=== PATIENT | female | born 1960 | race Caucasian/White ===

== ENCOUNTER 2016-09-23 12:33 | Emergency (ER) | payer BC, MEDICAID ==
[~2016-09-23] VITALS: Ht 165.1 cm; Wt 68.9 kg
[2016-09-23 12:43] VITALS: BP 154/102; PULSE 80; RESP 18; TEMP 97.4
--- NOTE | 2016-09-23 14:06 | PD ---
HPI . Refill request Chief Complaint: Medication Refill Request Time Seen by Provider: 13:39 Travel History International Travel<30 days: No Contact w/Intl Traveler<30days: No Traveled to known affect area: No History of Present Illness HPI Patient presents requesting a refill of her benzodiazepine. She reports that she's been out for about 4 days. She states that she can't sleep and is very tremulous and nauseous. She has recently moved to the area. She does not have a physician here. PFSH Past Medical History ?: Not Social History Tobacco Use: Yes Allergies-Medications (Allergen,Severity, Reaction): Coded Allergies: No Known Allergies (Unverified , 09/23/16) Review of Systems Except as stated in HPI: all other systems reviewed are Neg General / Constitutional: No: Fever, Chills Gastrointestinal: Positive: Nausea Neurologic: Positive: Tremor Psychiatric: Positive: Anxiety, Other (insomnia) Physical Exam Narrative GENERAL: Awake and alert and in no acute distress. SKIN: Warm and dry. CARDIOVASCULAR: Regular rate and rhythm. RESPIRATORY: No accessory muscle use. MUSCULOSKELETAL: No obvious deformities. No edema. NEUROLOGICAL: Awake and alert. No obvious cranial nerve deficits. Motor grossly within normal limits. Normal speech. PSYCHIATRIC: Anxious, tremulous, angry after I told her that I would not be refilling her medication. Data Data Last Documented VS Vital Signs Date Time Temp Pulse Resp B/P Pulse Ox O2 Delivery O2 Flow Rate FiO2 09/23/16 12:43 97.4 80 18 154/102 [facility] Medical Decision Making Medical Screen Exam Complete: Yes Emergency Medical Condition: Yes Differential Diagnosis Differential diagnosis includes anxiety, withdrawal, drug-seeking behavior Narrative Course Patient presents requesting a refill of a benzodiazepine. I have explained to the patient that we cannot do that through the emergency department. She does not have an ID. Diagnosis Primary Impression: Difficulty refilling prescriptions Disposition: 01 DISCHARGE HOME Condition: Stable Ariane Hillman MD Sep 23, 2016 14:06
[2016-09-23] MEDS ORDERED: LORazepam 1 MG TAB PO ONE (14:15)
== END 2016-09-23 14:53 | disposition home or self-care (01) ==
LOC: PHED 12:33 → PHEFT 14:53
DX: R11.0 Nausea (principal); Z76.0 Encounter for issue of repeat prescription
CPT/HCPCS: 99281

== ENCOUNTER 2017-02-04 03:15 | Emergency (ER) | payer MEDICAID, OTHER ==
[~2017-02-04] VITALS: Ht 165.1 cm; Wt 65.0 kg
[2017-02-04 03:23] VITALS: BP 144/95; PULSE 77; RESP 18; TEMP 97.6; O2SAT 96
[2017-02-04] MEDS ORDERED: SUBO8MIS SL (03:32)
[2017-02-04] MEDS ORDERED: KLON2TAB PO (03:33)
[2017-02-04 03:55] LABS: AUTOMATED NEUTROPHIL # 1.9 TH/MM3 (1.8-7.7); BASOPHIL % 0.6 % (0.0-2.0); EOSINOPHIL % 1.3 % (0.0-4.0); HEMATOCRIT 36.1 % (35.0-46.0); LYMPH % 31.3 % (9.0-44.0); LYMPHOCYTE # 1.1 TH/MM3 (1.0-4.8); MEAN CELL VOLUME 84.9 FL (80.0-100.0); MEAN CORPUSCULAR HEMOGLOBIN 29.8 PG (27.0-34.0); MEAN CORPUSCULAR HGB CONC 35.1 % (32.0-36.0); MONO % 13.5 % (0.0-8.0); NEUT % 53.3 % (16.0-70.0); PLATELET COUNT 150 TH/MM3 (150-450); RED BLOOD COUNT 4.26 MIL/MM3 (4.00-5.30); RED CELL DISTRIBUTION WIDTH 13.6 % (11.6-17.2); WHITE BLOOD COUNT 3.6 TH/MM3 (4.0-11.0)
[2017-02-04 03:58] LABS: HEMO FLAGS AUTO DIFF
[2017-02-04] MEDS ORDERED: LORazepam 1 MG TAB PO ONE (04:15)
[2017-02-04 04:28] LABS: ANION GAP 4 MEQ/L (5-15); AST (GOT) 32 U/L (15-37); BICARBONATE 28.9 MEQ/L (21.0-32.0); BLOOD UREA NITROGEN 15 MG/DL (7-18); CHLORIDE 106 MEQ/L (98-107); GLOMERULAR FILTRATION RATE 88 ML/MIN (>89); POTASSIUM 3.5 MEQ/L (3.5-5.1); SODIUM (NA) 139 MEQ/L (136-145)
[2017-02-04 04:29] LABS: ALT (GPT) 24 U/L (10-53)
[2017-02-04 04:32] LABS: ALKALINE PHOSPHATASE 73 U/L (45-117); TOTAL BILIRUBIN ADULT 0.5 MG/DL (0.2-1.0)
[2017-02-04 04:53] LABS: SCAN/DIFF AUTO DIFF CONFIRMED
[2017-02-04 04:54] LABS: PLATELET ESTIMATE SMEAR NORMAL (NORMAL); PLATELET MORPHOLOGY NORMAL (NORMAL)
--- NOTE | 2017-02-04 05:23 | PD ---
HPI Chief Complaint: Chest Pain Time Seen by Provider: 03:51 Travel History International Travel<30 days: No Contact w/Intl Traveler<30days: No Traveled to known affect area: No History of Present Illness HPI This Is a 57-year-old female who presents to the emergency department for multiple reasons including depression, poorly controlled anxiety and palpitations. She says she feels like she can't control her life anymore. Her boyfriend threw away all of her Klonopin. She's been in constant conflict with her significant other. She's not able to control her anxiety and that's why she is here. PFSH Past Medical History Anxiety: Yes Cardiovascular Problems: Yes (LEAKY VALVE, HTN) Hepatitis: Yes (C) Hypertension: Yes Medical other: Yes ?: Not Past Surgical History Other Surgery: Yes (CERVICAL SX) Social History Alcohol Use: No Tobacco Use: Yes (1ppd) Substance Use: Yes (HX OF HEROINE) Allergies-Medications (Allergen,Severity, Reaction): Coded Allergies: No Known Allergies (Unverified , 02/04/17) Reported Meds & Prescriptions Reported Meds & Active Scripts Active Reported Klonopin (Clonazepam) 2 Mg Tab 2 Mg PO TID Suboxone Sublingual Film (Buprenorphine-Naloxone Sublingual Film) 8-2 Mg Film 1 Film SL BID Unique ID number required: Review of Systems Except as stated in HPI: all other systems reviewed are Neg Physical Exam Narrative GENERAL: Disheveled SKIN: Focused skin assessment warm and dry. HEAD: Atraumatic. Normocephalic. EYES: Pupils equal and round. No injection or drainage. ENT: Moist mucous membranes NECK: Trachea midline. CARDIOVASCULAR: Regular rate and rhythm. No murmur appreciated. RESPIRATORY: Clear to auscultation. Breath sounds equal bilaterally. GASTROINTESTINAL: Abdomen soft, non-tender, nondistended. MUSCULOSKELETAL: No obvious deformities. NEUROLOGICAL: Awake and alert. No obvious cranial nerve deficits. Moving all extremities. PSYCHIATRIC: Anxious, intermittently tearful Data Data Last Documented VS Vital Signs Date Time Temp Pulse Resp B/P Pulse Ox O2 Delivery O2 Flow Rate FiO2 02/04/17 03:28 74 18 95 Room Air 02/04/17 03:23 97.6 144/95 Orders Complete Blood Count With Diff (02/04/17 03:37) Comprehensive Metabolic Panel (02/04/17 03:37) Troponin I (02/04/17 03:37) ^ Insert Iv (02/04/17 03:37) Electrocardiogram (02/04/17 ) Alcohol (Ethanol) (02/04/17 04:12) Drug Screen, Random Urine (02/04/17 04:12) Lorazepam (Ativan) (02/04/17 04:15) Psych Screen (02/04/17 04:14) Labs Laboratory Tests Test 02/04/17 03:45 White Blood Count 3.6 TH/MM3 Red Blood Count 4.26 MIL/MM3 Hemoglobin 12.7 GM/DL Hematocrit 36.1 % Mean Corpuscular Volume 84.9 FL Mean Corpuscular Hemoglobin 29.8 PG Mean Corpuscular Hemoglobin 35.1 % Concent Red Cell Distribution Width 13.6 % Platelet Count 150 TH/MM3 Mean Platelet Volume 7.4 FL Neutrophils (%) (Auto) 53.3 % Lymphocytes (%) (Auto) 31.3 % Monocytes (%) (Auto) 13.5 % Eosinophils (%) (Auto) 1.3 % Basophils (%) (Auto) 0.6 % Neutrophils # (Auto) 1.9 TH/MM3 Lymphocytes # (Auto) 1.1 TH/MM3 Monocytes # (Auto) 0.5 TH/MM3 Eosinophils # (Auto) 0.0 TH/MM3 Basophils # (Auto) 0.0 TH/MM3 CBC Comment AUTO DIFF Differential Comment AUTO DIFF CONFIRMED Platelet Estimate NORMAL Platelet Morphology Comment NORMAL Sodium Level 139 MEQ/L Potassium Level 3.5 MEQ/L Chloride Level 106 MEQ/L Carbon Dioxide Level 28.9 MEQ/L Anion Gap 4 MEQ/L Blood Urea Nitrogen 15 MG/DL Creatinine 0.69 MG/DL Estimat Glomerular Filtration 88 ML/MIN Rate Random Glucose 79 MG/DL Calcium Level 8.3 MG/DL Total Bilirubin 0.5 MG/DL Aspartate Amino Transf 32 U/L (AST/SGOT) Alanine Aminotransferase 24 U/L (ALT/SGPT) Alkaline Phosphatase 73 U/L Troponin I LESS THAN 0.02 NG/ML Total Protein 8.0 GM/DL Albumin 3.1 GM/DL Ethyl Alcohol Level LESS THAN 3 MG/DL MDM Medical Decision Making Medical Screen Exam Complete: Yes Emergency Medical Condition: Yes Interpretation(s) Afebrile, no tachycardia, hypertensive Mild leukopenia Electrolytes are reassuring Troponin is normal Alcohol negative Differential Diagnosis Acute coronary syndrome, anxiety, panic attack, depression, bipolar disorder Narrative Course This is a 57-year-old female who presents to the emergency department reporting poorly controlled anxiety. She is very tearful and difficult to direct on exam. Labs are obtained which were all reassuring. I think she is appropriate for voluntary psychiatric evaluation. Tasia Marques MD Feb 04, 2017 05:23
--- NOTE | 2017-02-04 08:43 | EKG ---
Date Performed: 02/04/2017 Time Performed: 03:51:11 PTAGE: 57 years EKG: Sinus rhythm POSSIBLE LEFT ATRIAL ENLARGEMENT POSSIBLE LEFT VENTRICULAR HYPERTROPHY NONSPECIFIC T-WAVE ABNORMALIT Y ABNORMAL ECG NO PREVIOUS TRACING DOCTOR: Eliot Sánchez Interpretating Date/Time 02/04/2017 08:41:13
[2017-02-04 08:50] VITALS: BP 121/91; PULSE 88; RESP 17; O2SAT 98
== END 2017-02-04 09:56 | disposition left against medical advice (07) ==
LOC: NEPE 03:15
DX: R07.9 Chest pain, unspecified (principal); I10 Essential (primary) hypertension; D72.819 Decreased white blood cell count, unspecified; R94.31 Abnormal electrocardiogram [ECG] [EKG]; F41.9 Anxiety disorder, unspecified; B19.20 Unspecified viral hepatitis C without hepatic coma; F17.200 Nicotine dependence, unspecified, uncomplicated; Z79.899 Other long term (current) drug therapy
CPT/HCPCS: 80053; 80307; 84484; 85025; 93005; 99284

== ENCOUNTER 2017-03-24 17:04 | Emergency (ER) | payer OTHER ==
[~2017-03-24] VITALS: Ht 165.1 cm; Wt 65.0 kg
[~2017-03-24 17:04] MED LIST: KLON2TAB PO; SUBO8MIS SL
[2017-03-24 17:23] VITALS: BP 115/60; PULSE 68; RESP 18; TEMP 98.3; O2SAT 96
[2017-03-24] MEDS ORDERED: diphenhydrAMINE HCL 50 MG/ML VIAL IV PUSH ONE (17:45)
[2017-03-24] MEDS ORDERED: LORazepam 2 MG/ML VIAL IV PUSH ONE (17:45)
[2017-03-24] MEDS ORDERED: SODIUM CHLORIDE 0.9% FLUSH 10 ML FLUSH IVF PRN (17:45)
[2017-03-24] MEDS ORDERED: TETANUS/DIPHTHERIA TOXOID ADULT 0.5 ML VIAL IM ONE (17:45)
[2017-03-24 17:58] VITALS: O2SAT 98
[2017-03-24 18:03] LABS: AUTOMATED NEUTROPHIL # 1.3 TH/MM3 (1.8-7.7); BASOPHIL % 0.9 % (0.0-2.0); EOSINOPHIL % 1.5 % (0.0-4.0); HEMATOCRIT 35.9 % (35.0-46.0); LYMPH % 35.5 % (9.0-44.0); LYMPHOCYTE # 0.9 TH/MM3 (1.0-4.8); MEAN CELL VOLUME 85.6 FL (80.0-100.0); MEAN CORPUSCULAR HGB CONC 33.8 % (32.0-36.0); MONO % 11.8 % (0.0-8.0); NEUT % 50.3 % (16.0-70.0); PLATELET COUNT 139 TH/MM3 (150-450); RED CELL DISTRIBUTION WIDTH 13.1 % (11.6-17.2); WHITE BLOOD COUNT 2.5 TH/MM3 (4.0-11.0)
[2017-03-24 18:06] LABS: HEMO FLAGS DIFF FINAL
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
[2017-03-24 18:20] LABS: APTT (PATIENT) 30.2 SEC (24.3-30.1); PROTHROMBIN TIME - PATIENT 11.4 SEC (9.8-11.6)
[2017-03-24 18:33] LABS: ANION GAP 4 MEQ/L (5-15); BICARBONATE 29.4 MEQ/L (21.0-32.0); BLOOD UREA NITROGEN 14 MG/DL (7-18); CHLORIDE 107 MEQ/L (98-107); GLOMERULAR FILTRATION RATE 68 ML/MIN (>89); MAGNESIUM 1.8 MG/DL (1.5-2.5); POTASSIUM 3.3 MEQ/L (3.5-5.1); SODIUM (NA) 140 MEQ/L (136-145)
[2017-03-24 18:42] LABS: CREATINE KINASE 77 U/L (26-192)
[2017-03-24 18:49] VITALS: BP_SYST 119; BP_SYST 120; BP_DIAS 67; BP_DIAS 73; PULSE 59; RESP 14; O2SAT 98
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
[2017-03-24] MEDS ORDERED: MOBI15TA PO (19:40)
[2017-03-24] MEDS ORDERED: CYCL1TAB29 PO (19:40)
[2017-03-24] MEDS ORDERED: CLON1 PO (19:40)
--- NOTE | 2017-03-25 14:40 | EKG ---
Date Performed: 03/24/2017 Time Performed: 17:20:38 PTAGE: 57 years EKG: Sinus rhythm POSSIBLE LEFT ATRIAL ENLARGEMENT POSSIBLE LEFT VENTRICULAR HYPERTROPHY NONSPECIFIC T-WAVE ABNORMALIT Y ABNORMAL ECG Compared to prior tracing no significant change PREVIOUS TRACING : 03/13/2017 06.45 DOCTOR: Sage Jones Interpretating Date/Time 03/25/2017 14:34:50
== END 2017-03-24 20:18 | disposition home or self-care (01) ==
LOC: NEPC 17:04
DX: R07.9 Chest pain, unspecified (principal); M53.3 Sacrococcygeal disorders, not elsewhere classified; R51 Headache; M25.552 Pain in left hip; M25.572 Pain in left ankle and joints of left foot; M79.652 Pain in left thigh; M50.322 Other cervical disc degeneration at C5-C6 level; E87.6 Hypokalemia; Z23 Encounter for immunization
CPT/HCPCS: 70450; 71010; 72100; 72125; 72170; 73552; 73560; 73590; 80048; 82550; 83735; 84484; 85025; 85610; 85730; 90471; 90714; 93005; 96374; 96375; 99285; J1200; J2060

== ENCOUNTER 2017-03-30 16:08 | Emergency (ER) | payer OTHER ==
[~2017-03-30] VITALS: Ht 165.1 cm; Wt 66.5 kg
[~2017-03-30 16:08] MED LIST changes: +CLON1 PO; +CYCL1TAB29 PO; +MOBI15TA PO
[2017-03-30 17:34] VITALS: BP 121/63; PULSE 80; RESP 16; TEMP 97.9; O2SAT 96
[2017-03-30] MEDS ORDERED: SULFAMETHOXAZOLE-TRIMETHOPRIM DS 800-160 MG TAB PO ONE (20:45)
[2017-03-30] MEDS ORDERED: KETOROLAC TROMETHAMINE 60 MG/2 ML (IM) VIAL IM ONE (20:45)
[2017-03-30] MEDS ORDERED: clonazePAM 1 MG TAB PO ONE (20:45)
[2017-03-30] MEDS ORDERED: ACETAMINOPHEN/HYDROcodone 325 MG/5 MG TAB PO ONE (20:45)
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
[2017-03-30] MEDS ORDERED: DICL75TA PO (21:37)
[2017-03-30] MEDS ORDERED: BACT800T5 PO (21:37)
[2017-03-30] MEDS ORDERED: CLON1 PO ×2 (21:37→21:38)
[2017-03-30] MEDS ORDERED: CEPH-460 PO (21:37)
== END 2017-03-30 21:56 | disposition home or self-care (01) ==
LOC: PHEFT 16:08
DX: L03.012 Cellulitis of left finger (principal); F41.9 Anxiety disorder, unspecified; M79.89 Other specified soft tissue disorders; I10 Essential (primary) hypertension
CPT/HCPCS: 73590; 73630; 96372; 99284; E0113; J1885

== ENCOUNTER 2017-04-16 18:25 | Emergency (ER) | payer OTHER ==
[~2017-04-16] VITALS: Ht 165.1 cm; Wt 58.0 kg
[~2017-04-16 18:25] MED LIST changes: +BACT800T5 PO; +CEPH-460 PO; +DICL75TA PO
[2017-04-16 18:35] VITALS: BP 135/88; PULSE 105; RESP 24; TEMP 97.5; O2SAT 98
[2017-04-16 18:42] VITALS: BP 135/88; PULSE 105; RESP 24; TEMP 97.5; O2SAT 98
[2017-04-16] MEDS ORDERED: HYDR-3133 PO (19:13)
--- NOTE | 2017-04-16 19:13 | PD ---
HPI Chief Complaint: Anxiety Time Seen by Provider: 18:54 Travel History International Travel<30 days: No Contact w/Intl Traveler<30days: No Traveled to known affect area: No History of Present Illness HPI This is a 57 year old female who has a history of opiate and benzodiazepine withdrawl who presents to the emergency department requesting a refill on her Klonopin. She says she just moved from [place] earlier this spring and when she came down to [place] as she was able to find a doctor who would write for her Suboxone but not her Klonopin. She says ever since then she's been going through benzodiazepine withdrawal, sweating, and not feeling herself. She says no doctor once to help her. She says she usually comes to the emergency department and gets a dose of Ativan and then she feels better for a little bit of time but ultimately she goes home and feels badly again. She says she just wants to feel normal. PFSH Past Medical History Anxiety: Yes Cardiovascular Problems: Yes (LEAKY VALVE, HTN) Diminished Hearing: No Hepatitis: Yes (C) Hypertension: Yes Tetanus Vaccination: < 5 Years Influenza Vaccination: No ?: Not Menopausal: Yes Past Surgical History Other Surgery: Yes (CERVICAL SX) Social History Alcohol Use: No Tobacco Use: Yes (1ppd) Substance Use: Yes (HX OF HEROINE) Allergies-Medications (Allergen,Severity, Reaction): Coded Allergies: No Known Allergies (Unverified , 04/16/17) Reported Meds & Prescriptions Reported Meds & Active Scripts Active Reported Klonopin (Clonazepam) 2 Mg Tab 2 Mg PO TID Suboxone Sublingual Film (Buprenorphine-Naloxone Sublingual Film) 8-2 Mg Film 1 Film SL BID Unique ID number required: Review of Systems Except as stated in HPI: all other systems reviewed are Neg Physical Exam Narrative GENERAL: Tearful, disheveled SKIN: Focused skin assessment warm and dry. HEAD: Atraumatic. Normocephalic. EYES: Pupils equal and round. No injection or drainage. ENT: Moist mucous membranes NECK: Trachea midline. CARDIOVASCULAR: Regular rate and rhythm. No murmur appreciated. RESPIRATORY: Clear to auscultation. Breath sounds equal bilaterally. GASTROINTESTINAL: Abdomen soft, non-tender, nondistended. MUSCULOSKELETAL: No obvious deformities. NEUROLOGICAL: Awake and alert. No obvious cranial nerve deficits. PSYCHIATRIC: Appropriate mood and affect; insight and judgment normal. Data Data Last Documented VS Vital Signs Date Time Temp Pulse Resp B/P (MAP) Pulse Ox O2 Delivery O2 Flow Rate FiO2 04/16/17 18:42 97.5 105 24 135/88 (104) 98 Room Air MDM Medical Decision Making Medical Screen Exam Complete: Yes Emergency Medical Condition: Yes Medical Record Reviewed: Yes (I saw this patient on February 04, 2017. At that time she came in because she wanted a refill on her Klonopin. She ultimately left AGAINST MEDICAL ADVICE prior to seeing a psychiatrist) Differential Diagnosis Anxiety, benzodiazepine dependence, panic disorder, adjustment reaction Narrative Course This is a 57-year-old female who presents to the emergency department requesting refills on her Klonopin. I explained to her that we can't refill controlled substances in the emergency department. The patient is very tearful , argumentative and somewhat hyperverbal. The patient has filled 17 controlled substance prescriptions in the past 3 months from 7 different providers. I suspect she is drug seeking. I don't think it is in her best interest to prescribe her any controlled substances at this time. I don't think she has an underlying emergent etiology of her symptoms. I don't think she is in acute benzodiazepine withdrawal as her vital signs are normal. She was offered hydroxyzine and she was given a referral to [facility]. Diagnosis Primary Impression: Benzodiazepine dependence Patient Instructions: General Instructions Additional Instructions: Follow up with Joseph Bourgeois in regards to psychiatric or substance related issues at: [address] [place], [place] [id number] Med/Other Pt SpecificInfo: Prescription(s) given Scripts Hydroxyzine HCl (Hydroxyzine HCl) 25 Mg Tab 25 MG PO QID Y for ANXIETY, #15 TAB 0 Refills Prov: Tasia Marques MD 04/16/17 Disposition: 01 DISCHARGE HOME Condition: Stable Tasia Marques MD Apr 16, 2017 19:13
--- NOTE | 2017-04-17 10:27 | EKG ---
Date Performed: 04/16/2017 Time Performed: 18:39:13 PTAGE: 57 years EKG: SINUS TACHYCARDIA POSSIBLE LEFT ATRIAL ENLARGEMENT LEFT VENTRICULAR HYPERTROPHY AND ST-T CH ANAI ABNORMAL ECG PREVIOUS TRACING : 03/24/2017 17.20 Compared to prior tracing no significant change DOCTOR: Abdulaziz Hernadez Interpretating Date/Time 04/17/2017 10:20:56
== END 2017-04-16 19:29 | disposition home or self-care (01) ==
LOC: PHED 18:25
DX: F13.20 Sedative, hypnotic or anxiolytic dependence, uncomplicated (principal); F17.200 Nicotine dependence, unspecified, uncomplicated; I10 Essential (primary) hypertension; F41.9 Anxiety disorder, unspecified
CPT/HCPCS: 93005; 99283

== ENCOUNTER 2017-06-27 20:25 | Emergency (ER) | payer OTHER ==
[~2017-06-27] VITALS: Ht 165.1 cm; Wt 63.0 kg
[~2017-06-27 20:25] MED LIST changes: -BACT800T5 PO; -CEPH-460 PO; -CLON1 PO; -CYCL1TAB29 PO; -DICL75TA PO; +HYDR-3133 PO; -MOBI15TA PO
[2017-06-27 20:31] VITALS: BP 109/69; PULSE 74; RESP 16; TEMP 99.3; O2SAT 88
[2017-06-27 21:02] VITALS: BP 110/71; PULSE 76; RESP 16; O2SAT 96
[2017-06-27] MEDS ORDERED: CLON0.1T PO (21:13)
[2017-06-27] MEDS ORDERED: GABA100C4 PO (21:13)
[2017-06-27] MEDS ORDERED: CLON1TAB PO (21:13)
--- NOTE | 2017-06-27 21:23 | PD ---
HPI Chief Complaint: Cold / Flu Symptoms Time Seen by Provider: 21:10 Travel History International Travel<30 days: No Contact w/Intl Traveler<30days: No Traveled to known affect area: No History of Present Illness HPI The patient is a 57-year-old female that has had a cough and myalgias for 3-4 weeks. She smokes at least a pack a day. She may have had a fever, she never took her temperature at home. She does have a slight sore throat. She states she has been diagnosed as being HIV positive but does not believe it and never followed up with her doctors. She has not seen any physician for HIV and over 7 years. She is on Suboxone, hydroxyzine and Klonopin. She has a history of IV drug abuse [facility] Past Medical History Anxiety: Yes Cardiovascular Problems: Yes (LEAKING VALVE) Diminished Hearing: No Hepatitis: Yes (C) Hypertension: Yes Immune Disorder: Yes (HIV) Influenza Vaccination: No ?: Not Menopausal: Yes Past Surgical History Other Surgery: Yes (CERVICAL SX) Social History Alcohol Use: No Tobacco Use: Yes (1ppd) Substance Use: No (HX OF HEROINE) Allergies-Medications (Allergen,Severity, Reaction): Coded Allergies: No Known Allergies (Verified Adverse Reaction, Unknown, 06/27/17) Reported Meds & Prescriptions Reported Meds & Active Scripts Active Reported Gabapentin 100 Mg Cap 100 Mg PO TID Clonidine (Clonidine HCl) 0.1 Mg Tab 0.1 Mg PO BID Clonazepam 1 Mg Tab 1 Mg PO TID Suboxone Sublingual Film (Buprenorphine-Naloxone Sublingual Film) 8-2 Mg Film 1 Film SL BID Unique ID number required: Review of Systems Except as stated in HPI: all other systems reviewed are Neg Physical Exam Narrative GENERAL: The patient is alert, oriented 3 in no respiratory distress. Her vital signs show temperature 99.3 with oximetry 96% on room air. SKIN: Focused skin assessment warm/dry. No recent needle tracks are seen. HEAD: Atraumatic. Normocephalic. EYES: Pupils equal and round. No scleral icterus. No injection or drainage. ENT: No nasal bleeding or discharge. Mucous membranes pink and moist. NECK: Trachea midline. No JVD. CARDIOVASCULAR: Regular rate and rhythm. No murmur appreciated. RESPIRATORY: No accessory muscle use. Scattered wheezes and rhonchi are heard bilaterally. Breath sounds equal bilaterally. GASTROINTESTINAL: Abdomen soft, non-tender, nondistended. Hepatic and splenic margins not palpable. MUSCULOSKELETAL: No obvious deformities. No clubbing. No cyanosis. No edema. NEUROLOGICAL: Awake and alert. No obvious cranial nerve deficits. Motor grossly within normal limits. Normal speech. PSYCHIATRIC: Appropriate mood and affect; insight and judgment normal. Data Data Last Documented VS Vital Signs Date Time Temp Pulse Resp B/P (MAP) Pulse Ox O2 Delivery O2 Flow Rate FiO2 06/27/17 21:49 94 Room Air 06/27/17 21:02 76 16 06/27/17 20:31 99.3 Orders Orders Complete Blood Count With Diff (06/27/17 21:24) Comprehensive Metabolic Panel (06/27/17 21:24) Influenzae A/B Antigen (06/27/17 21:24) Iv Access Insert/Monitor (06/27/17 21:24) Electrocardiogram (06/27/17 21:24) Ecg Monitoring (06/27/17 21:24) Oximetry (06/27/17 21:24) Oxygen Administration (06/27/17 21:24) Chest, Pa & Lat (06/27/17 21:24) Sodium Chloride 0.9% Flush (Ns Flush) (06/27/17 21:30) Albuterol-Ipratropium Neb (Duoneb Neb) (06/27/17 21:30) Group A Rapid Strep Screen (06/27/17 21:26) Clonazepam (Klonopin) (06/27/17 21:45) Strep Culture (Group A) (06/27/17 21:25) Labs Laboratory Tests Test 06/27/17 21:25 White Blood Count 6.1 TH/MM3 Red Blood Count 4.96 MIL/MM3 Hemoglobin 14.4 GM/DL Hematocrit 43.5 % Mean Corpuscular Volume 87.7 FL Mean Corpuscular Hemoglobin 29.0 PG Mean Corpuscular Hemoglobin Concent 33.0 % Red Cell Distribution Width 14.6 % Platelet Count 343 TH/MM3 Mean Platelet Volume 7.1 FL Neutrophils (%) (Auto) 77.6 % Lymphocytes (%) (Auto) 14.7 % Monocytes (%) (Auto) 6.5 % Eosinophils (%) (Auto) 0.8 % Basophils (%) (Auto) 0.4 % Neutrophils # (Auto) 4.8 TH/MM3 Lymphocytes # (Auto) 0.9 TH/MM3 Monocytes # (Auto) 0.4 TH/MM3 Eosinophils # (Auto) 0.0 TH/MM3 Basophils # (Auto) 0.0 TH/MM3 CBC Comment DIFF FINAL Differential Comment Blood Urea Nitrogen 14 MG/DL Creatinine 0.98 MG/DL Random Glucose 87 MG/DL Total Protein 9.2 GM/DL Albumin 3.3 GM/DL Calcium Level 9.0 MG/DL Alkaline Phosphatase 154 U/L Aspartate Amino Transf (AST/SGOT) 20 U/L Alanine Aminotransferase (ALT/SGPT) 16 U/L Total Bilirubin 0.4 MG/DL Sodium Level 133 MEQ/L Potassium Level 4.1 MEQ/L Chloride Level 99 MEQ/L Carbon Dioxide Level 28.9 MEQ/L Anion Gap 5 MEQ/L Estimat Glomerular Filtration Rate 59 ML/MIN MDM Medical Decision Making Medical Screen Exam Complete: Yes Emergency Medical Condition: Yes Medical Record Reviewed: Yes Interpretation(s) The chest x-ray does not show any pneumonia. The CBC is normal. The complete metabolic profile shows a sodium of 133, GFR 59, alkaline phosphatase of 154, total protein of 9.2 and albumin of 3.3. Differential Diagnosis Bronchitis, pneumonia, COPD with acute exacerbation, reflux esophagitis Narrative Course The patient appears to have a bronchitis. She will be put on Zithromax. She does have epigastric pain which is likely from reflux esophagitis. Diagnosis Primary Impression: Bronchitis Additional Impression: Reflux esophagitis Additional Instructions: The antibiotic is one tablet daily for 5 days. The medication to cut on a acid is one tablet twice daily. Med/Other Pt SpecificInfo: Prescription(s) given Scripts Azithromycin (Zithromax) 500 Mg Tab 500 MG PO DAILY for Infection for 5 Days, #5 TAB 0 Refills Prov: Nabil Walter MD 06/27/17 Ranitidine (Zantac) 150 Mg Tab 150 MG PO BID for Reduce Stomach Acid, #60 TAB 0 Refills Prov: Nabil Walter MD 06/27/17 Disposition: 01 DISCHARGE HOME Condition: Stable Nabil Walter MD Jun 27, 2017 21:23
[2017-06-27] MEDS ORDERED: SODIUM CHLORIDE 0.9% FLUSH 10 ML FLUSH IVF PRN (21:30)
[2017-06-27 21:36] LABS: AUTOMATED NEUTROPHIL # 4.8 TH/MM3 (1.8-7.7); BASOPHIL % 0.4 % (0.0-2.0); EOSINOPHIL % 0.8 % (0.0-4.0); HEMATOCRIT 43.5 % (35.0-46.0); HEMO FLAGS DIFF FINAL; LYMPH % 14.7 % (9.0-44.0); LYMPHOCYTE # 0.9 TH/MM3 (1.0-4.8); MEAN CELL VOLUME 87.7 FL (80.0-100.0); MONO % 6.5 % (0.0-8.0); NEUT % 77.6 % (16.0-70.0); PLATELET COUNT 343 TH/MM3 (150-450); RED BLOOD COUNT 4.96 MIL/MM3 (4.00-5.30); RED CELL DISTRIBUTION WIDTH 14.6 % (11.6-17.2); WHITE BLOOD COUNT 6.1 TH/MM3 (4.0-11.0)
[2017-06-27] MEDS: RESP: ALBUTEROL 2.5 MG/IPRATROPIUM 0.5 MG NEB (SCH) INH (21:39)
[2017-06-27] MEDS ORDERED: clonazePAM 1 MG TAB PO ONE (21:45)
[2017-06-27 21:49] VITALS: O2SAT 94
[2017-06-27 21:49] LABS: CHLORIDE 99 MEQ/L (98-107); POTASSIUM 4.1 MEQ/L (3.5-5.1); SODIUM (NA) 133 MEQ/L (136-145)
[2017-06-27 21:52] LABS: ANION GAP 5 MEQ/L (5-15); BICARBONATE 28.9 MEQ/L (21.0-32.0); BLOOD UREA NITROGEN 14 MG/DL (7-18)
[2017-06-27 21:55] LABS: ALT (GPT) 16 U/L (10-53); AST (GOT) 20 U/L (15-37)
[2017-06-27 21:56] LABS: GLOMERULAR FILTRATION RATE 59 ML/MIN (>89)
[2017-06-27 21:57] LABS: TOTAL BILIRUBIN ADULT 0.4 MG/DL (0.2-1.0)
[2017-06-27 21:58] LABS: ALKALINE PHOSPHATASE 154 U/L (45-117)
--- NOTE | 2017-06-27 22:56 | RADRPT ---
EXAM DATE/TIME: 06/27/2017 22:18 [place] COMPARISON: No previous studies available for comparison. INDICATIONS : Shortness of breath, cough, chest pain. MEDICAL HISTORY : Hypertension. HIV. SURGICAL HISTORY : None. ENCOUNTER: Initial ACUITY: 2 months PAIN SCORE: 3/10 LOCATION: Bilateral chest FINDINGS: There is subsegmental air space disease the lung bases. No significant effusion. No pneumothorax. Hea rt size enlarged. CONCLUSION: 1. Subsegmental airspace disease at the lung bases most characteristic of bronchopneumonia. Jean-Claude Posada MD on June 27, 2017 at 22:54 Board Certified Radiologist. This report was verified electronically.
[2017-06-27] MEDS ORDERED: ZANT150T2 PO (23:02)
[2017-06-27] MEDS ORDERED: ZITH500T PO (23:02)
[2017-06-27 23:12] VITALS: BP 109/64; PULSE 78; RESP 16; O2SAT 95
[2017-06-27] MEDS ORDERED: AZITHROMYCIN 250 MG TAB PO ONE (23:15)
[2017-06-28 00:08] VITALS: BP 114/65; TEMP 98.2
--- NOTE | 2017-06-28 12:37 | EKG ---
Date Performed: 06/27/2017 Time Performed: 21:38:06 PTAGE: 57 years EKG: Sinus rhythm WITH OCCASIONAL SUPRAVENTRICULAR PREMATURE COMPLEXES POSSIBLE LEFT ATRIAL ENLARGEMENT BORDERLINE ECG PREVIOUS TRACING : 04/16/2017 18.39 Since previous tracing, PACs are new and the ST changes hav e improved. Criteria for LVH no longer appears. DOCTOR: Cornelio Sorensen Interpretating Date/Time 06/28/2017 12:35:39
== END 2017-06-28 00:11 | disposition home or self-care (01) ==
LOC: PHED 20:25
DX: J18.0 Bronchopneumonia, unspecified organism (principal); K21.0 Gastro-esophageal reflux disease with esophagitis; M79.1 Myalgia; R94.31 Abnormal electrocardiogram [ECG] [EKG]; I10 Essential (primary) hypertension; F41.9 Anxiety disorder, unspecified; F17.200 Nicotine dependence, unspecified, uncomplicated; Z21 Asymptomatic human immunodeficiency virus [HIV] infection status; Z86.79 Personal history of other diseases of the circulatory system
CPT/HCPCS: 71020; 80053; 85025; 87081; 87804; 87880; 93005; 94640; 94664; 99285